=== PATIENT | female | born 2005 | race African-American/Black ===

== ENCOUNTER 2025-02-10 12:41 | Emergency (ER) | payer SELFPAY ==
[~2025-02-10] VITALS: Ht 152.4 cm; Wt 89.1 kg
[2025-02-10 12:48] VITALS: BP 117/76; PULSE 73; RESP 20; TEMP 97.9; O2SAT 99
[2025-02-10] MEDS ORDERED: PENI500T2 PO (14:28)
[2025-02-10] MEDS ORDERED: IBUP-1492 PO (14:45)
== END 2025-02-10 14:57 | disposition home or self-care (01) ==
LOC: EMS 13:20
DX: K05.10 Chronic gingivitis, plaque induced (principal); F12.90 Cannabis use, unspecified, uncomplicated; J45.909 Unspecified asthma, uncomplicated
CPT/HCPCS: 99283; Z7502